=== PATIENT | male | born 1990 | race Two or more races ===

== ENCOUNTER 2025-01-22 15:01 | Emergency (ER) | payer SELFPAY ==
[2025-01-22 15:10] VITALS: RESP 20; TEMP 98.2; BMI 24.2
[2025-01-22] MEDS ORDERED: SODIUM CHLORIDE 1,000 ML IV SCH (15:15)
[2025-01-22 15:27] LABS: ABSOLUTE IMMATURE GRANULOCYTES 0.02 x10^3/uL (0.0-0.031); BASOPHILS # 0.05 x10^3/uL (0.01-0.08); EOSINOPHIL % 0.9 % (0.8-7.0); EOSINOPHILS # 0.07 x10^3/uL (0.04-0.54); MCHC 32.8 g/dl (32.3-36.5); MEAN CELL VOLUME 84.3 fl (79.0-92.2); MEAN PLT VOLUME 9.2 fl (9.4-12.4); MONOCYTE # 0.63 x10^3/uL (0.30-0.82); MONOCYTE % 8.5 % (5.3-12.2); RDW 12.1 % (12.0-15.6)
[2025-01-22 15:45] LABS: GLUCOSE,RANDOM 123 mg/dL (74-106); TOT PROT 7.7 g/dl (6.4-8.2)
[2025-01-22 15:46] LABS: CO2 24 mmol/L (21-32); INR 1.03 (0.83-1.09); PROTHROMBIN TIME (PATIENT) 11.2 SEC (9.7-13.0)
[2025-01-22] MEDS ORDERED: METOCLOPRAMIDE HCL INJECTION 10 MG/2 ML VIAL ONE (15:46)
[2025-01-22] MEDS ORDERED: ACETAMINOPHEN INJECTION 100 ML ONE (15:46)
[2025-01-22 15:48] LABS: ACTIVATED PTT 30.5 SECONDS (25.2-36.5); ALK PHOS 60 U/L (40-150)
[2025-01-22 15:50] LABS: SGPT/ALT 36 U/L (0-55)
[2025-01-22 15:51] LABS: CREATININE 0.92 mg/dL (0.55-1.3); SGOT/AST 28 U/L (5-34)
[2025-01-22] MEDS: ACETAMINOPHEN 1000 MG/100 ML BAG IVPB ONE (16:01)
[2025-01-22] MEDS: METOCLOPRAMIDE HCL INJECTION 10 MG/2 ML VIAL IVPB ONE (16:24)
[2025-01-22 16:31] LABS: URINE APPEARANCE CLEAR; URINE BILIRUBIN NEGATIVE (NEGATIVE); URINE COLOR YELLOW; URINE GLUCOSE (UA) NEGATIVE (NEGATIVE); URINE KETONE NEGATIVE (NEGATIVE); URINE LEUK ESTERASE NEGATIVE (NEGATIVE); URINE NITRITE NEGATIVE (NEGATIVE); URINE PROTEIN NEGATIVE (NEGATIVE); URINE UROBILINOGEN 0.2 mg/dL (0.2-1.0)
[2025-01-22] MEDS: LACTATED RINGERS SOLUTION 1000 ML INFUS.BAG IV ONE (16:44)
[2025-01-22 17:13] LABS: LDL CHOLESTEROL (ONLY SJRH) 126 mg/dL (5-100)
[2025-01-22 17:31] VITALS: BP 132/78; PULSE 85
== END 2025-01-22 17:44 | disposition home or self-care (01) ==
LOC: JER 15:01
PROC: 3E033NZ Introduction of Analgesics, Hypnotics, Sedatives into Peripheral Vein, Percutaneous Approach (ICD-10-PCS; principal; 2025-01-22)
PROC: 3E033GC Introduction of Other Therapeutic Substance into Peripheral Vein, Percutaneous Approach (ICD-10-PCS; 2025-01-22)
DX: R51.9 Headache, unspecified (principal); R29.898 Other symptoms and signs involving the musculoskeletal system; H53.149 Visual discomfort, unspecified
CPT/HCPCS: 36415; 70450-TC; 70496-TC; 70498-TC; 80053; 80061; 81003; 82550; 82962; 83036; 84484; 85025; 85610; 85730; 86850; 86900; 86901; 93005; 93010; 99285-25